=== PATIENT | male | born 1940 | race Caucasian/White ===

== ENCOUNTER 2018-09-05 10:20 | Outpatient (CLI) | payer MEDICARE | END 2018-09-05 23:59 | disposition home or self-care (01) | LOC: CFH 10:20 | PROVIDERS: ATTEND Registered Nurse | DX: Z02.9 Encounter for administrative examinations, unspecified (principal) ==

== ENCOUNTER 2018-09-26 08:44 | Outpatient (CLI) | payer MEDICARE | END 2018-09-26 23:59 | disposition home or self-care (01) | LOC: CARD 08:44 | PROVIDERS: ATTEND Registered Nurse | DX: R25.1 Tremor, unspecified (principal) | CPT/HCPCS: 95819 ==

== ENCOUNTER → 2018-09-26 | Outpatient (CLI) | payer MEDICARE | END | disposition home or self-care (01) | LOC: RAD 08:45 | PROVIDERS: ATTEND Registered Nurse | DX: G31.89 Other specified degenerative diseases of nervous system (principal); I99.8 Other disorder of circulatory system; F03.90 Unspecified dementia, unspecified severity, without behavioral disturbance, psychotic disturbance, mood disturbance, and anxiety; R90.82 White matter disease, unspecified; R25.1 Tremor, unspecified; R56.9 Unspecified convulsions | CPT/HCPCS: 70551 ==

== ENCOUNTER → 2020-11-06 | Outpatient (CLI) | payer MEDICARE ==
[~2020-11-06] MED LIST: REGADENOSON 0.4 MG/5 ML SYRINGE ONE
== END | disposition home or self-care (01) ==
LOC: CFH 06:46
PROVIDERS: ATTEND Internal Medicine Cardiovascular Disease
DX: I21.09 ST elevation (STEMI) myocardial infarction involving other coronary artery of anterior wall (principal); R94.31 Abnormal electrocardiogram [ECG] [EKG]; I42.9 Cardiomyopathy, unspecified
CPT/HCPCS: 78452; 93017; A9502; J2785